=== PATIENT | male | born 1960 | race Caucasian/White ===

== ENCOUNTER → 2017-03-20 | Outpatient (CLI) | payer BC, OTHER ==
--- NOTE | 2017-03-20 11:52 | DRAGON STRESS TEST REPORT ---
EXERCISE TREADMILL CARDIOLITE STRESS TEST USING SINGLE PHOTON EMMISION COMPUTERIZED TOMOGRAPHIC. DATE OF PROCEDURE: March 20, 2017 INDICATION : Abnormal electrocardiogram CARDIAC RISK FACTORS: Diabetes, dyslipidemia, family history of CVA. RESTING EKG: Sinus rhythm, no baseline ST segment changes noted. Borderline Q waves noted inferiorly. STRESS EKG: No significant changes noted with exercise REASON FOR TERMINATION: Fatigue, tiredness and also patient reaching heart rate target. PROCEDURE REPORT: Baseline heart rate 88 beats per minute with blood pressure of 143/79. Patient had no significant complaints. Patient exercised on standard Gennaro protocol for 9 minutes and 1 seconds. Exercise stopped because of fatigue and some shortness of breath. Peak heart rate achieved is 169 which is 102 % of predicted maximum. Peak blood pressure was 210/82. Double product achieved was 34.86 kcal. Met level achieved is 10.1. No significant EKG changes were noted. CONCLUSIONS: Normal hemodynamic response to exercise treadmill. No significant ST segment changes noted. NUCLEAR DATA: At rest the patient was given 13.68 millicuries of technetium 99 sestamibi injected intravenously. As per protocol rest gated SPECT images were obtained. Subsequently the stress dose of 38.9 millicuries of technetium 99 sestamibi was injected intravenously at peak exercise. Patient continued to exercise for 1 additional minute. As per protocol stress gated images were obtained. NUCLEAR INTERPRETATION: Both raw and processed data were used for interpretation. Visual, qualitative, computer-generated quantitative data was used. There was good myocardial uptake of technetium compound. Motion artifact and soft tissue attenuations were noted. Increased visceral uptake was noted. No definitive areas of transient perfusion defect noted. No definitive areas of fixed perfusion defect or scars noted except for a small area of fixed defect in the basal inferior wall felt to be artifactual, related to diaphragmatic attenuation artifact but cannot rule out an area of mild fixed defect. EKG gated imaging showed LV EF at 61 %, rest and stress gated EF similar visually. T. I D. ratio was 0.96. Lung heart ratio noted to be within normal limits 0.38. No significant extracardiac and abnormal radiotracer activities were noted. RV free wall uptake was noted to be WNL. IMPRESSION: Also refer to comments under nuclear interpretation. Also test results needs to be interpreted in the context of pretest probability. 1. There is no definitive scintigraphic evidence of exercise induced myocardial ischemia. 2. No definitive areas of fixed perfusion defect or scars noted except for a small area of fixed defect in the basal inferior wall felt to be artifactual, related to diaphragmatic attenuation artifact but cannot rule out an area of mild fixed defect or mild scar involving the basal inferior wall. 3. EKG gated imaging shows left ventricular ejection fraction of approximately 56%. 4. Clinical correlation requested as occasionally single vessel disease could be missed. RECOMMENDATIONS: Aggressive risk factor modification, medical therapy. Clinical correlation with echocardiogram derived ejection fraction. Consider cardiology consultation and or follow-up if clinically indicated. I AM AVAILABLE FOR CARDIOLOGY CONSULTATION AND FOLLOWUP IF REQUESTED BY PMD Judith Bailey M.D., [employer] text[employer] printer, Board certified in cardiovascular diseases, Nuclear cardiology, Echocardiography Cardiac CT and cardiac MRI Ph. [phone] [facility]
== END ==
LOC: RAD 07:06
PROVIDERS: ATTEND Family Medicine
DX: R94.31 Abnormal electrocardiogram [ECG] [EKG] (principal)
CPT/HCPCS: 93017; 78452; A9500; Q9969

== ENCOUNTER 2019-03-10 11:02 | Day surgery (SDC) | payer OTHER ==
[~2019-03-10 11:02] MED LIST: PROPOFOL INJ 200 MG/20 ML VIAL IV ONE
--- NOTE | 2019-03-10 12:33 | Operative Report ---
Operative Report DATE OF SURGERY: 03/10/19 Operative Report: The risks, benefits and alternatives of the procedure including the risk of bleeding, perforation requiring surgery have been explained to the patient in detail and informed consent has been obtained. Patient is taken back to the endoscopy suite and placed in a left, lateral decubital position. Timeout was called. Propofol medication is administered. A rectal examination is done which did not reveal any masses, tears or fissures. An Olympus videoscope was introduced into the patient's rectum. The scope was then carefully advanced all the way to the cecum. The cecum was identified by the usual anatomical landmarks of the ileocecal valve as well as the appendiceal office. Photodocumentation is obtained. Prep was good. The scope was then sequentially pulled back via the rest segments of the colon including the ascending colon, hepatic flexure, transverse colon, splenic flexure, descending colon and finally into the rectosigmoid portions of the colon. Retroflexion maneuvers performed. PREOPERATIVE DIAGNOSIS: Colorectal cancer screening POSTOPERATIVE DIAGNOSIS: Sessile sigmoid polyp was removed via snare polypectomy and retrieved. Diverticulosis without any evidence of diverticulitis. Internal hemorrhoids OPERATION: Colonoscopy with snare polypectomy SURGEON: PAULA TAMAYO ANESTHESIA: LMAC TISSUE REMOVED OR ALTERED: As noted above. COMPLICATIONS: None. ESTIMATED BLOOD LOSS: None. INTRAOPERATIVE FINDINGS: As noted above. PROCEDURE: Patient tolerated the procedure well. No immediate postprocedure complications are noted. Patient is discharged in good condition. Discharge date 03/10/2019. Discharge diet: Regular. Discharge activity: Regular. 2 to 3-week follow-up to discuss findings. Patient is instructed to call the office or proceed to the emergency room should there be any further problems or questions. Wait on the pathology. 3 to 5-year surveillance colonoscopy.
[2019-03-10 13:03] VITALS: BP 133/75
== END 2019-03-10 13:05 | disposition home or self-care (01) ==
LOC: END 11:02
PROVIDERS: ATTEND Internal Medicine Gastroenterology
DX: Z12.11 Encounter for screening for malignant neoplasm of colon (principal); D12.5 Benign neoplasm of sigmoid colon; K57.30 Diverticulosis of large intestine without perforation or abscess without bleeding; K64.8 Other hemorrhoids; E11.9 Type 2 diabetes mellitus without complications; Z79.84 Long term (current) use of oral hypoglycemic drugs
CPT/HCPCS: 45385; 82962; 88305 ×2; 00811; J2704; 811